=== PATIENT | male | born 2000 ===

== ENCOUNTER 2021-09-23 17:21 | Emergency (ER) | payer OTHER ==
[~2021-09-23] VITALS: Ht 172.7 cm; Wt 90.0 kg
[2021-09-23 17:30] VITALS: BP 123/70
[2021-09-23] MEDS ORDERED: ketorolac tromethamine 15mg/ml inj. IM ONE (18:25)
== END 2021-09-23 20:07 | disposition home or self-care (01) ==
LOC: ER 17:21
DX: M79.674 Pain in right toe(s) (principal)
CPT/HCPCS: 73630; 96372; 99283; J1885